=== PATIENT | male | born 1995 | race Caucasian/White ===

== ENCOUNTER → 2025-09-12 | Outpatient (CLI) | payer OTHER, SELFPAY ==
--- NOTE | 2025-09-12 | LES_PTH ---
PATIENT: Alfa Swartz LOC: [facility] U#:[id number] AGE/SX: 29/M ROOM: RE09/12/[address]: Dr. Balbir Pastor MD : 1995 BED: DIS: 09/12/2025 SPEC #: [id number] RECD: 09/12/25 10:26 STATUS: JOSH JOSE #: [id number] [place]: 09/12/25 00:[address]: Balbir Pastor DEPT: SURGICAL PATHOLOGY RECD BY: Vikram Phelps Tissues: A - Skin of abdomen, NOS Procedures: Surgery Specimen Level IV HEADER OPERATION: Excision suprapubic mass PRE-OP DIAGNOSIS: Granuloma TISSUE SUBMITTED: Suprapubic mass MICROSCOPIC DIAGNOSIS A. Skin, suprapubic, mass, excision: - Pyogenic granuloma. MICROSCOPIC DESCRIPTION Slides are reviewed. GROSS DESCRIPTION A. Received in formalin labeled with the patient's name and date of . Designated as suprapubic mass is a 2.3 x 2.0 x 0.4-0.8 cm pink-purple to jeffers-green, rubbery and wrinkled soft tissue nodule surfaced by a 2.0 x 1.7 cm etienne-jeffers somewhat annular portion of skin; the specimen is devoid of orientation. Sectioning reveals edematous and somewhat congested cut surfaces. Entirely submitted in 3 cassettes. MD 09/12/2025 CPT:58675
== END | disposition home or self-care (01) ==
PROVIDERS: Referring Provider Family Medicine; Visit Provider Family Medicine
DX: L98.0 Pyogenic granuloma (principal)
CPT/HCPCS: 88305